=== PATIENT | male | born 1945 | race Caucasian/White ===

== ENCOUNTER 2025-04-03 12:47 | Outpatient (CLI) | payer MEDICARE, BC, SELFPAY | END 2025-04-03 12:48 | disposition home or self-care (01) | LOC: MRI 12:52 | PROVIDERS: Visit Provider Nurse Practitioner | DX: R97.21 Rising PSA following treatment for malignant neoplasm of prostate (principal); C61 Malignant neoplasm of prostate | CPT/HCPCS: 72195 ==